=== PATIENT | female | born 1940 | race Two or more races ===

== ENCOUNTER 2023-06-09 12:41 | Inpatient (IN) | payer OTHER ==
[~2023-06-09] VITALS: Ht 152.4 cm; Wt 86.6 kg
[2023-06-09 14:01] LABS: Basophils # (auto) 0 10 ^3/uL (0-0.2); Basophils % (auto) 0.3 % (0.0-2.0); Eosinophils # (auto) 0.3 10 ^3/uL (0-0.8); Eosinophils % (auto) 4.5 % (0.0-7.0); Hematocrit 30.4 % (36.0-46.0); Hemoglobin 9.8 g/dL (12.2-16.2); Lymphocytes # (auto) 1.4 10 ^3/uL (0.4-5.4); Lymphocytes % (auto) 23.8 % (10.0-50.0); Mean Corpuscular Hemoglobin 28.2 pg (28.0-32.0); Mean Corpuscular Hgb Conc. 32.2 g/dL (32.0-36.0); Mean Corpuscular Volume 87.5 fL (80.0-100.0); Monocytes # (auto) 0.3 10 ^3/uL (0-1.3); Monocytes % (auto) 5.9 % (0.0-12.0); Neutrophils # (auto) 3.8 10 ^3/uL (1.6-8.6); Neutrophils % (auto) 65.5 % (37.0-80.0); Red Blood Cells 3.48 10^6/uL (4.0-5.20); Red Cell Distribution Width 13.9 % (11.8-14.3); White Blood Cell 5.8 10^3/uL (4.4-10.8)
[2023-06-09 14:19] LABS: Alanine Aminotransferase 24 U/L (7-40); Albumin 4.1 g/dL (3.2-4.8); Alkaline Phosphatase 67 U/L (46-116); Aspartate Aminotransferase 28 U/L (13-40); BUN/Creatinine Ratio 16.8 (10.0-20.0); Bilirubin, Total 0.3 mg/dL (0.2-1.0); Blood Urea Nitrogen 17 mg/dL (9-23); Calcium 9.1 mg/dL (8.5-10.1); Chloride 99 mmol/L (98-107); Glucose 107 mg/dL (74-106); Potassium 5.1 mmol/L (3.5-5.1); Sodium 134 mmol/L (136-145); Total Protein 6.3 g/dL (5.7-8.2)
[2023-06-09] MEDS ORDERED: IPRATROPIUM BROM 0.5 MG/2.5ML INH SOL HHN ONE (14:30)
[2023-06-09] MEDS ORDERED: ONDANSETRON HCL 4 MG/2 ML VIAL IV ONE (14:30)
[2023-06-09] MEDS ORDERED: ALBUTEROL SULF 2.5 MG/0.5ML(0.5%) NEB SOLN HHN ONE (14:30)
[2023-06-09] MEDS ORDERED: ACETAMINOPHEN 325 MG TAB PO ONE (14:30)
[2023-06-09] MEDS ORDERED: SODIUM CHLORIDE 0.9% 1,000 ML IV ONE (14:30)
[2023-06-09 16:11] LABS: Base Excess 4.8 mmol/L (-2.0-2.0)
[2023-06-09 16:16] LABS: INR 1.09 (0.9-1.15); Partial Thromboplastin Time 32.4 SEC (24.5-34.5); Prothrombin Time 11.4 sec (9.3-11.8)
[2023-06-09] MEDS ORDERED: IOHEXOL 350 MG/ML 100ML IJ ONE ×2 (16:21→16:28)
[2023-06-09 16:23] LABS: Blood Alcohol < 3.0 mg/dL (<10)
[2023-06-09 17:20] VITALS: BP 142/50; PULSE 74; O2SAT 99
[2023-06-09 17:34] VITALS: PULSE 70; RESP 25; O2SAT 98
[2023-06-09] MEDS ORDERED: ONDANSETRON HCL 4 MG/2 ML VIAL IV PRN (18:00)
[2023-06-09] MEDS ORDERED: DOCUSATE SOD 100 MG CAP PO PRN (18:00)
[2023-06-09] MEDS ORDERED: IPRATROPIUM BROM 0.5 MG/2.5ML INH SOL NEB PRN (18:00)
[2023-06-09] MEDS ORDERED: ALBUTEROL SULF 2.5 MG/0.5ML(0.5%) NEB SOLN NEB PRN (18:00)
[2023-06-09] MEDS ORDERED: ROSU1TAB12 PO (18:12)
[2023-06-09] MEDS ORDERED: LOSA100T58 PO (18:12)
[2023-06-09] MEDS ORDERED: AMLO1TAB23 PO (18:12)
[2023-06-09] MEDS ORDERED: PREG-111 PO (18:12)
[2023-06-09] MEDS ORDERED: TIZA-142 PO (18:12)
[2023-06-09] MEDS ORDERED: LEVO100T8 PO (18:12)
[2023-06-09 19:04] LABS: Urine Bacteria FEW /hpf (None Seen); Urine Blood Negative /uL (Negative); Urine Clarity Clear (Clear); Urine Color Yellow (Yellow); Urine Hyaline Cast FEW /lpf (0 - 2); Urine Protein, UAD Negative (Negative); Urine Specific Gravity 1.026 (1.001-1.035); Urine Urobilinogen Normal (Negative); Urine WBC 76 /hpf (0 - 5)
[2023-06-09 19:40] VITALS: PULSE 76; RESP 18; O2SAT 98
[2023-06-09 20:00] VITALS: BP 144/63; PULSE 75; O2SAT 95
[2023-06-09] MEDS: PREGABALIN CAPSULE 75 MG CAP PO SCH (21:52)
[2023-06-09] MEDS: SODIUM CHLOR 0.9% PF (SALINE LOCK) 10ML VIAL/SYR IV SCH (21:53)
[2023-06-09 22:25] VITALS: BP 133/79; PULSE 85; O2SAT 95
[2023-06-09] MEDS: HYDROcodone-ACET 5/325MG TAB PO PRN (22:54)
[2023-06-10] VITALS (13 sets, daily range): BP systolic 137–159; BP diastolic 54–99; PULSE 76–92; RESP 16–20; TEMP 97.3–99.2; O2SAT 94–98
[2023-06-10] MEDS ORDERED: NAP500T PO (03:10)
[2023-06-10] MEDS ORDERED: CHOL100083 (03:10)
[2023-06-10 06:18] LABS: Basophils # (auto) 0 10 ^3/uL (0-0.2); Basophils % (auto) 0.4 % (0.0-2.0); Eosinophils # (auto) 0.2 10 ^3/uL (0-0.8); Eosinophils % (auto) 3.3 % (0.0-7.0); Hematocrit 30.5 % (36.0-46.0); Hemoglobin 10.2 g/dL (12.2-16.2); Lymphocytes % (auto) 18.6 % (10.0-50.0); Mean Corpuscular Hemoglobin 28.9 pg (28.0-32.0); Mean Corpuscular Hgb Conc. 33.5 g/dL (32.0-36.0); Mean Corpuscular Volume 86.3 fL (80.0-100.0); Monocytes # (auto) 0.3 10 ^3/uL (0-1.3); Monocytes % (auto) 6.2 % (0.0-12.0); Neutrophils # (auto) 3.9 10 ^3/uL (1.6-8.6); Neutrophils % (auto) 71.5 % (37.0-80.0); Red Blood Cells 3.54 10^6/uL (4.0-5.20); Red Cell Distribution Width 13.6 % (11.8-14.3); White Blood Cell 5.5 10^3/uL (4.4-10.8)
[2023-06-10 06:29] LABS: Alanine Aminotransferase 21 U/L (7-40); Albumin 4.3 g/dL (3.2-4.8); Alkaline Phosphatase 77 U/L (46-116); Anion Gap 3.4 (5-15); Aspartate Aminotransferase 17 U/L (13-40); BUN/Creatinine Ratio 15.5 (10.0-20.0); Blood Urea Nitrogen 13 mg/dL (9-23); Calcium 9.5 mg/dL (8.7-10.4); Carbon Dioxide 35.6 mmol/L (20-30); Chloride 101 mmol/L (98-107); Glucose 110 mg/dL (74-106); Potassium 4.7 mmol/L (3.5-5.1); Sodium 140 mmol/L (136-145)
[2023-06-10 06:30] LABS: Bilirubin, Total 0.3 mg/dL (0.2-1.0); Total Protein 6.6 g/dL (5.7-8.2)
[2023-06-10] MEDS: LEVOTHYROXINE SODIUM 100 MCG TAB PO SCH (06:52)
[2023-06-10] MEDS: SODIUM CHLOR 0.9% PF (SALINE LOCK) 10ML VIAL/SYR IV SCH ×3 (06:52→21:09)
[2023-06-10] MEDS: ATORVASTATIN 20 MG TAB PO SCH (10:00)
[2023-06-10] MEDS: amLODIPine BESYLATE 5 MG TAB PO SCH (10:36)
[2023-06-10] MEDS: cefTRIAXone 1GM/50ML D5W 50 ML IV SCH (10:38)
[2023-06-10] MEDS: PREGABALIN CAPSULE 75 MG CAP PO SCH ×2 (12:31→21:09)
[2023-06-10] MEDS: LOSARTAN POTASSIUM 50 MG TAB PO SCH (12:32)
[2023-06-10] MEDS: HYDROcodone-ACET 5/325MG TAB PO PRN ×2 (12:53→21:12)
[2023-06-11] VITALS (11 sets, daily range): BP systolic 120–172; BP diastolic 60–83; PULSE 63–88; RESP 15–19; TEMP 97.9–98.7; O2SAT 94–98
[2023-06-11] MEDS: HYDROcodone-ACET 5/325MG TAB PO PRN ×3 (02:57→21:11)
[2023-06-11] MEDS: ACETAMINOPHEN 325 MG TAB PO PRN (06:10)
[2023-06-11] MEDS: SODIUM CHLOR 0.9% PF (SALINE LOCK) 10ML VIAL/SYR IV SCH ×3 (06:10→21:02)
[2023-06-11] MEDS: LEVOTHYROXINE SODIUM 100 MCG TAB PO SCH (06:10)
[2023-06-11] MEDS: cefTRIAXone 1GM/50ML D5W 50 ML IV SCH (09:28)
[2023-06-11] MEDS: amLODIPine BESYLATE 5 MG TAB PO SCH (09:29)
[2023-06-11] MEDS: LOSARTAN POTASSIUM 50 MG TAB PO SCH (09:30)
[2023-06-11] MEDS: PREGABALIN CAPSULE 75 MG CAP PO SCH ×2 (09:30→21:03)
[2023-06-11] MEDS: ATORVASTATIN 20 MG TAB PO SCH (09:30)
[2023-06-11] MEDS ORDERED: TIZANIDINE 4MG PO ONE (12:00)
[2023-06-11] MEDS ORDERED: METOPROLOL TARTRATE 25 MG TAB PO PRN (12:30)
[2023-06-11] MEDS ORDERED: METOPROLOL TARTRATE 1MG/1ML-5ML VIAL IV PRN (13:00)
[2023-06-11] MEDS: IPRATROPIUM BROM 0.5 MG/2.5ML INH SOL NEB SCH ×3 (14:00→22:00)
[2023-06-11] MEDS: ALBUTEROL SULF 2.5 MG/0.5ML(0.5%) NEB SOLN NEB SCH ×3 (14:00→22:00)
[2023-06-11] MEDS: TIZANIDINE 4 MG PO SCH (21:03)
[2023-06-12] VITALS (12 sets, daily range): BP systolic 115–145; BP diastolic 70–76; PULSE 54–106; RESP 17–20; TEMP 97.5–98.3; O2SAT 90–98
[2023-06-12] MEDS: HYDROcodone-ACET 5/325MG TAB PO PRN ×4 (02:00→20:52)
[2023-06-12] MEDS: LEVOTHYROXINE SODIUM 100 MCG TAB PO SCH (06:29)
[2023-06-12] MEDS: SODIUM CHLOR 0.9% PF (SALINE LOCK) 10ML VIAL/SYR IV SCH ×3 (06:30→20:37)
[2023-06-12 06:37] LABS: Basophils # (auto) 0 10 ^3/uL (0-0.2); Basophils % (auto) 0.3 % (0.0-2.0); Eosinophils # (auto) 0.3 10 ^3/uL (0-0.8); Eosinophils % (auto) 4.2 % (0.0-7.0); Hematocrit 36.9 % (36.0-46.0); Lymphocytes # (auto) 2.1 10 ^3/uL (0.4-5.4); Lymphocytes % (auto) 28.1 % (10.0-50.0); Mean Corpuscular Hemoglobin 28.5 pg (28.0-32.0); Mean Corpuscular Hgb Conc. 32.5 g/dL (32.0-36.0); Mean Corpuscular Volume 87.4 fL (80.0-100.0); Monocytes # (auto) 0.5 10 ^3/uL (0-1.3); Neutrophils # (auto) 4.4 10 ^3/uL (1.6-8.6); Neutrophils % (auto) 60.4 % (37.0-80.0); Red Blood Cells 4.22 10^6/uL (4.0-5.20); Red Cell Distribution Width 13.7 % (11.8-14.3); White Blood Cell 7.4 10^3/uL (4.4-10.8)
[2023-06-12 06:49] LABS: Anion Gap 7.4 (5-15); Carbon Dioxide 28.6 mmol/L (20-30); Chloride 99 mmol/L (98-107); Potassium 4.4 mmol/L (3.5-5.1)
[2023-06-12 06:55] LABS: BUN/Creatinine Ratio 16.9 (10.0-20.0); Blood Urea Nitrogen 15 mg/dL (9-23); Glucose 120 mg/dL (74-106)
[2023-06-12] MEDS: ALBUTEROL SULF 2.5 MG/0.5ML(0.5%) NEB SOLN NEB SCH ×3 (07:12→20:57)
[2023-06-12] MEDS: IPRATROPIUM BROM 0.5 MG/2.5ML INH SOL NEB SCH ×3 (07:12→20:57)
[2023-06-12 07:20] LABS: Sodium 135 mmol/L (136-145)
[2023-06-12] MEDS: PREGABALIN CAPSULE 75 MG CAP PO SCH ×2 (08:41→20:35)
[2023-06-12] MEDS: ATORVASTATIN 20 MG TAB PO SCH (08:41)
[2023-06-12] MEDS: LOSARTAN POTASSIUM 50 MG TAB PO SCH (08:42)
[2023-06-12] MEDS: amLODIPine BESYLATE 5 MG TAB PO SCH (08:42)
[2023-06-12] MEDS: TIZANIDINE 4 MG PO SCH ×2 (08:43→20:35)
[2023-06-12] MEDS: cefTRIAXone 1GM/50ML D5W 50 ML IV SCH (08:43)
[2023-06-12] MEDS ORDERED: ceFAZolin 1GM/50ML 100 ML IV ONE (10:05)
[2023-06-12] MEDS ORDERED: MIDAZOLAM HCL 2MG/2ML 2ml VIAL (1mg/ml) ONE (10:25)
[2023-06-12] MEDS ORDERED: fentaNYL CITRATE 100 MCG/2 ML VL ONE (10:25)
[2023-06-12] MEDS ORDERED: TETRACAINE 1% INJ 2 ML VIAL IJ ONE (10:28)
[2023-06-12] MEDS ORDERED: DexAMETHasone SOD PHOS 10MG/1ML VIAL INJ ONE (11:12)
[2023-06-12] MEDS ORDERED: PROPOFOL 10 MG/ML 20 ML IV ONE (11:12)
[2023-06-12] MEDS ORDERED: ePHEDrine SULFATE 50 MG/ML AMP IV PRN (11:15)
[2023-06-12] MEDS ORDERED: ONDANSETRON HCL 4 MG/2 ML VIAL IV PRN (11:15)
[2023-06-12] MEDS ORDERED: MIDAZOLAM HCL 2MG/2ML 2ml VIAL (1mg/ml) IV PRN (11:15)
[2023-06-12] MEDS ORDERED: LABETALOL HCL 5 MG/ML 4ML SYRINGE IV PRN (11:15)
[2023-06-12] MEDS ORDERED: MORPHINE SULFATE 4 MG/ML SYR/VIAL IV PRN (11:15)
[2023-06-12] MEDS: HYDROmorphone HCL 2 MG/ML VL/or syr IV PRN ×4 (12:25→12:57)
[2023-06-12] MEDS ORDERED: PHENYLEPHRINE HCL 10 MG/ML VL IV ONE (18:04)
[2023-06-13] VITALS (10 sets, daily range): BP systolic 116–150; BP diastolic 48–76; PULSE 74–91; RESP 18–20; TEMP 36.6; O2SAT 94–99
[2023-06-13] MEDS: HYDROcodone-ACET 5/325MG TAB PO PRN ×3 (01:19→09:59)
[2023-06-13] MEDS: LEVOTHYROXINE SODIUM 100 MCG TAB PO SCH (05:46)
[2023-06-13] MEDS: SODIUM CHLOR 0.9% PF (SALINE LOCK) 10ML VIAL/SYR IV SCH ×2 (05:47→14:29)
[2023-06-13] MEDS: IPRATROPIUM BROM 0.5 MG/2.5ML INH SOL NEB SCH ×2 (06:55→14:29)
[2023-06-13] MEDS: ALBUTEROL SULF 2.5 MG/0.5ML(0.5%) NEB SOLN NEB SCH ×2 (06:55→14:29)
[2023-06-13 07:10] LABS: Basophils # (auto) 0 10 ^3/uL (0-0.2); Basophils % (auto) 0.1 % (0.0-2.0); Eosinophils # (auto) 0 10 ^3/uL (0-0.8); Hematocrit 32.8 % (36.0-46.0); Hemoglobin 11.1 g/dL (12.2-16.2); Lymphocytes # (auto) 1.3 10 ^3/uL (0.4-5.4); Lymphocytes % (auto) 12.4 % (10.0-50.0); Mean Corpuscular Hemoglobin 28.7 pg (28.0-32.0); Mean Corpuscular Hgb Conc. 33.8 g/dL (32.0-36.0); Mean Corpuscular Volume 84.8 fL (80.0-100.0); Monocytes # (auto) 0.4 10 ^3/uL (0-1.3); Monocytes % (auto) 3.5 % (0.0-12.0); Neutrophils # (auto) 8.9 10 ^3/uL (1.6-8.6); Nucleated Red Blood Cells % 0.1 %; Red Blood Cells 3.87 10^6/uL (4.0-5.20); Red Cell Distribution Width 13.4 % (11.8-14.3); White Blood Cell 10.6 10^3/uL (4.4-10.8)
[2023-06-13] MEDS: cefTRIAXone 1GM/50ML D5W 50 ML IV SCH (08:46)
[2023-06-13] MEDS: ATORVASTATIN 20 MG TAB PO SCH (08:46)
[2023-06-13] MEDS: amLODIPine BESYLATE 5 MG TAB PO SCH (08:47)
[2023-06-13] MEDS: LOSARTAN POTASSIUM 50 MG TAB PO SCH (08:48)
[2023-06-13] MEDS: TIZANIDINE 4 MG PO SCH (08:50)
[2023-06-13] MEDS: PREGABALIN CAPSULE 75 MG CAP PO SCH (09:13)
[2023-06-13] MEDS ORDERED: ENOXAPARIN SOD 40 MG/0.4 ML SYRINGE SC SCH (10:00)
[2023-06-13] MEDS: ACETAMINOPHEN 325 MG TAB PO PRN (13:31)
[2023-06-13] MEDS ORDERED: OXYCODONE W/ ACETAMINOPHEN 5/325MG TABLET PO PRN (13:45)
[2023-06-13] MEDS ORDERED: AMOX500T86 PO (14:10)
[2023-06-13] MEDS ORDERED: ASPI1TAB20 PO (14:10)
== END 2023-06-13 18:05 | disposition home health service (06) | DRG 493 ==
LOC: ER 12:41 → EDBD 12:41 → TELE 18:09 → TELE-WESTW 06-10 01:15
PROVIDERS: ADMIT Nurse Practitioner Family; ATTEND Hospitalist
PROC: 5A09357 Assistance with Respiratory Ventilation, Less than 24 Consecutive Hours, Continuous Positive Airway Pressure (ICD-10-PCS; principal; 2023-06-09)
PROC: 0QSG04Z Reposition Right Tibia with Internal Fixation Device, Open Approach (ICD-10-PCS; 2023-06-12)
PROC: 0QSJ04Z Reposition Right Fibula with Internal Fixation Device, Open Approach (ICD-10-PCS; 2023-06-12)
DX: S82.841A Displaced bimalleolar fracture of right lower leg, initial encounter for closed fracture (principal); E87.20 Acidosis, unspecified; N39.0 Urinary tract infection, site not specified; J96.11 Chronic respiratory failure with hypoxia; D64.9 Anemia, unspecified; I10 Essential (primary) hypertension; Z96.643 Presence of artificial hip joint, bilateral; W18.39XA Other fall on same level, initial encounter; E78.5 Hyperlipidemia, unspecified; E03.9 Hypothyroidism, unspecified; E66.9 Obesity, unspecified; Z68.37 Body mass index [BMI] 37.0-37.9, adult; Z80.0 Family history of malignant neoplasm of digestive organs; Z99.81 Dependence on supplemental oxygen; Z82.49 Family history of ischemic heart disease and other diseases of the circulatory system; Z90.710 Acquired absence of both cervix and uterus; Y93.89 Activity, other specified; Y92.89 Other specified places as the place of occurrence of the external cause; Y99.8 Other external cause status; Z88.5 Allergy status to narcotic agent; Z88.8 Allergy status to other drugs, medicaments and biological substances
CPT/HCPCS: 36415; 36600; 70450; 71045; 71275; 73502; 73590; 73600; 73610; 76000; 80048; 80053; 80320; 81001; 82805; 82962; 83036; 83605; 83735; 83880; 84443; 84484; 85025; 85379; 85610; 85730; 86850; 86900; 86901; 87040; 87081; 87086; 87088; 87186; 93005; 93306; 94640; 94660; 97110; 97163; 97530; 99291; G0378; J0690; J0696; J1100; J2250; J2704

== ENCOUNTER 2023-06-25 15:46 | Emergency (ER) | payer OTHER ==
[~2023-06-25] VITALS: Ht 162.6 cm; Wt 80.0 kg
[~2023-06-25 15:46] MED LIST: AMLO1TAB23 PO; AMOX500T86 PO; ASPI1TAB20 PO; CHOL100083; LEVO100T8 PO; LOSA100T58 PO; NAP500T PO; PREG-111 PO; ROSU1TAB12 PO; TIZA-142 PO
[2023-06-25 16:50] LABS: Basophils # (auto) 0 10 ^3/uL (0-0.2); Basophils % (auto) 0.5 % (0.0-2.0); Eosinophils # (auto) 0.2 10 ^3/uL (0-0.8); Eosinophils % (auto) 2.6 % (0.0-7.0); Hematocrit 33.9 % (36.0-46.0); Hemoglobin 11.1 g/dL (12.2-16.2); Lymphocytes # (auto) 1.1 10 ^3/uL (0.4-5.4); Lymphocytes % (auto) 17.9 % (10.0-50.0); Mean Corpuscular Hemoglobin 28.5 pg (28.0-32.0); Mean Corpuscular Hgb Conc. 32.8 g/dL (32.0-36.0); Mean Corpuscular Volume 86.8 fL (80.0-100.0); Monocytes # (auto) 0.2 10 ^3/uL (0-1.3); Monocytes % (auto) 3.5 % (0.0-12.0); Neutrophils # (auto) 4.7 10 ^3/uL (1.6-8.6); Neutrophils % (auto) 75.5 % (37.0-80.0); Nucleated Red Blood Cells % 0.1 %; Red Blood Cells 3.91 10^6/uL (4.0-5.20); Red Cell Distribution Width 13.8 % (11.8-14.3); White Blood Cell 6.2 10^3/uL (4.4-10.8)
[2023-06-25 17:08] LABS: Alanine Aminotransferase 16 U/L (7-40); Albumin 5.3 g/dL (3.2-4.8); Alkaline Phosphatase 77 U/L (46-116); Anion Gap 4 (5-15); Aspartate Aminotransferase 19 U/L (13-40); BUN/Creatinine Ratio 37.3 (10.0-20.0); Bilirubin, Total 0.3 mg/dL (0.2-1.0); Blood Urea Nitrogen 28 mg/dL (9-23); Calcium 10.4 mg/dL (8.7-10.4); Carbon Dioxide 35 mmol/L (20-30); Chloride 99 mmol/L (98-107); Glucose 117 mg/dL (74-106); Potassium 4.1 mmol/L (3.5-5.1); Sodium 138 mmol/L (136-145)
[2023-06-25 17:09] LABS: Total Protein 7.8 g/dL (5.7-8.2)
[2023-06-25 20:40] VITALS: PULSE 92; RESP 18; O2SAT 92
[2023-06-26] MEDS ORDERED: FLEET ENEMA(ADULT) 135 ML PR ONE
[2023-06-26 00:06] LABS: Urine Bacteria NONE SEEN /hpf (None Seen); Urine Blood Negative /uL (Negative); Urine Clarity Clear (Clear); Urine Mucus FEW (None Seen); Urine Protein, UAD TRACE (Negative); Urine Specific Gravity 1.013 (1.001-1.035); Urine Urobilinogen Normal (Negative); Urine WBC 1 /hpf (0 - 5); Urine pH 7.5 (5.0-8.0)
[2023-06-26 00:07] LABS: Urine Color Straw (Yellow)
[2023-06-26] MEDS ORDERED: KETOROLAC TROMETH 30 MG/ML 1ML VIAL IV ONE (00:45)
[2023-06-26] MEDS ORDERED: HYDROcodone-ACET 5/325MG TAB PO ONE ×3 (00:45→22:00)
[2023-06-26] MEDS ORDERED: GOLYTELY 4L KIT PO ONE (02:15)
[2023-06-26 08:00] VITALS: PULSE 82; RESP 12; O2SAT 95
[2023-06-26] MEDS ORDERED: LOSARTAN POTASSIUM 50 MG TAB PO ONE (15:00)
[2023-06-26] MEDS ORDERED: LEVOTHYROXINE SODIUM 100 MCG TAB PO ONE (15:00)
[2023-06-26] MEDS: amLODIPine BESYLATE 5 MG TAB PO ONE ×2 (15:13→15:25)
[2023-06-26 18:59] LABS: COVID19 ANTIGEN SOFIA FIA NEGATIVE (NEGATIVE)
[2023-06-26 19:30] VITALS: PULSE 63; RESP 20; O2SAT 100
[2023-06-26] MEDS: amLODIPine BESYLATE 5 MG TAB PO SCH (22:13)
[2023-06-27] MEDS ORDERED: HYDROcodone-ACET 5/325MG TAB PO ONE (03:45)
[2023-06-27] MEDS: LEVOTHYROXINE SODIUM 100 MCG TAB PO SCH (07:18)
[2023-06-27 08:08] VITALS: PULSE 72; RESP 20; O2SAT 96
[2023-06-27] MEDS ORDERED: OMEG100062 PO (08:52)
[2023-06-27] MEDS ORDERED: ROSU5TAB5 PO (08:52)
[2023-06-27] MEDS ORDERED: OXY10CRT PO (08:52)
[2023-06-27] MEDS ORDERED: amLODIPine BESYLATE 5 MG TAB PO SCH (10:00)
[2023-06-27] MEDS: OXYCODONE W/ ACETAMINOPHEN 5/325MG TABLET PO SCH ×3 (11:33→22:02)
[2023-06-27] MEDS: LOSARTAN POTASSIUM 50 MG TAB PO SCH (11:34)
[2023-06-27] MEDS ORDERED: ACETAMINOPHEN 325 MG TAB PO ONE (18:00)
[2023-06-27 19:30] VITALS: PULSE 69; RESP 14; O2SAT 94
[2023-06-27] MEDS: amLODIPine BESYLATE 5 MG TAB PO SCH (22:02)
[2023-06-28] MEDS: OXYCODONE W/ ACETAMINOPHEN 5/325MG TABLET PO SCH ×2 (06:18→14:08)
[2023-06-28] MEDS: LEVOTHYROXINE SODIUM 100 MCG TAB PO SCH (06:18)
[2023-06-28 08:00] VITALS: PULSE 63; RESP 15; O2SAT 96
[2023-06-28] MEDS: LOSARTAN POTASSIUM 50 MG TAB PO SCH (10:28)
[2023-06-28 14:00] VITALS: BP 90/46; PULSE 67; RESP 18; TEMP 98.5; O2SAT 95
[2023-06-28] MEDS ORDERED: FAMOTIDINE 20 MG TAB PO ONE (14:30)
== END 2023-06-28 15:42 ==
LOC: ER 15:46 → EDBD 15:46 → ER 06-28 15:00
DX: G89.4 Chronic pain syndrome (principal); K56.41 Fecal impaction; R33.9 Retention of urine, unspecified; R94.31 Abnormal electrocardiogram [ECG] [EKG]; Z88.2 Allergy status to sulfonamides; Z88.6 Allergy status to analgesic agent; Z79.899 Other long term (current) drug therapy; Z20.822 Contact with and (suspected) exposure to COVID-19
CPT/HCPCS: 36415; 51702; 74176; 80053; 81001; 82962; 84484; 85025; 87426; 93005; 97110; 97116; 97163; 97530

== ENCOUNTER 2023-07-26 11:45 | Inpatient (IN) | payer OTHER, MEDICAID ==
[~2023-07-26] VITALS: Ht 152.4 cm; Wt 86.0 kg
[~2023-07-26 11:45] MED LIST changes: +OMEG100062 PO; +OXY10CRT PO; +ROSU5TAB5 PO
[2023-07-26 13:56] LABS: Urine Bacteria NONE SEEN /hpf (None Seen); Urine Blood Negative /uL (Negative); Urine Clarity HAZY (Clear); Urine Color Yellow (Yellow); Urine Protein, UAD Negative (Negative); Urine Specific Gravity 1.017 (1.001-1.035); Urine Urobilinogen Normal (Negative); Urine WBC 14 /hpf (0 - 5)
[2023-07-26] MEDS ORDERED: ONDANSETRON HCL 4 MG/2 ML VIAL IV ONE (15:00)
[2023-07-26] MEDS ORDERED: VANCOMYCIN PER PHARMACY 1,000 MG IV SCH (15:00)
[2023-07-26] MEDS ORDERED: SODIUM CHLORIDE 0.9% 1,000 ML IV ONE (15:00)
[2023-07-26] MEDS ORDERED: HYDROcodone-ACET 10/325MG TAB PO ONE (15:00)
[2023-07-26] MEDS ORDERED: VANCOMYCIN 1GM/250ML 250 ML IV ONE (15:30)
[2023-07-26 15:55] LABS: Basophils # (auto) 0 10 ^3/uL (0-0.2); Basophils % (auto) 0.6 % (0.0-2.0); Eosinophils # (auto) 0.2 10 ^3/uL (0-0.8); Eosinophils % (auto) 4.5 % (0.0-7.0); Hematocrit 31.7 % (36.0-46.0); Hemoglobin 10.2 g/dL (12.2-16.2); Lymphocytes # (auto) 1.5 10 ^3/uL (0.4-5.4); Lymphocytes % (auto) 26.8 % (10.0-50.0); Mean Corpuscular Hemoglobin 28.2 pg (28.0-32.0); Mean Corpuscular Hgb Conc. 32.1 g/dL (32.0-36.0); Monocytes # (auto) 0.4 10 ^3/uL (0-1.3); Monocytes % (auto) 6.5 % (0.0-12.0); Neutrophils # (auto) 3.4 10 ^3/uL (1.6-8.6); Neutrophils % (auto) 61.6 % (37.0-80.0); White Blood Cell 5.4 10^3/uL (4.4-10.8)
[2023-07-26 16:18] LABS: Alanine Aminotransferase 22 U/L (7-40); Albumin 4.6 g/dL (3.2-4.8); Alkaline Phosphatase 95 U/L (46-116); Anion Gap 4 (5-15); Aspartate Aminotransferase 22 U/L (13-40); BUN/Creatinine Ratio 15.1 (10.0-20.0); Bilirubin, Total 0.3 mg/dL (0.2-1.0); Blood Urea Nitrogen 16 mg/dL (9-23); Calcium 9.5 mg/dL (8.5-10.1); Carbon Dioxide 35 mmol/L (20-30); Chloride 93 mmol/L (98-107); Glucose 111 mg/dL (74-106); Potassium 4.7 mmol/L (3.5-5.1); Sodium 132 mmol/L (136-145); Total Protein 7.4 g/dL (5.7-8.2)
[2023-07-26 16:26] LABS: CRP High Sensitivity 1.73 mg/dL (<1.0)
[2023-07-26 16:31] LABS: INR 1.09 (0.9-1.15); Partial Thromboplastin Time 31.9 SEC (24.5-34.5); Prothrombin Time 11.4 sec (9.3-11.8)
[2023-07-26 17:03] LABS: Erythrocyte Sedimentation Rate 28 mm/hr (0-20)
[2023-07-27] MEDS ORDERED: HYDROcodone-ACET 5/325MG TAB PO PRN (06:15)
[2023-07-27] MEDS ORDERED: ONDANSETRON HCL 4 MG/2 ML VIAL IV PRN (06:15)
[2023-07-27] MEDS ORDERED: ACETAMINOPHEN 325 MG TAB PO PRN (06:15)
[2023-07-27] MEDS ORDERED: hydrALAZINE HCL 10 MG TAB PO PRN (06:15)
[2023-07-27] MEDS ORDERED: DEXTROSE (50%) 50ML SYRG IV PRN (06:15)
[2023-07-27] MEDS: InsuLIN REG 1unit/0.01ml Soln (100units/ml) SC SCH ×4 (06:58→21:57)
[2023-07-27] MEDS: ACCU-CHEK COMFORT CURVE STRIP VI SCH ×4 (06:59→21:57)
[2023-07-27 08:16] VITALS: PULSE 70; RESP 13; O2SAT 98
[2023-07-27] MEDS ORDERED: levoFLOXacin 500MG 100 ML IV ONE (10:00)
[2023-07-27] MEDS: FAMOTIDINE 20 MG TAB PO SCH (10:08)
[2023-07-27] MEDS ORDERED: CLINDAMYCIN 600MG IV 50 ML IV SCH (14:00)
[2023-07-27] MEDS: MORPHINE SULFATE INJ 2 MG/ml SYRG IV PRN (18:51)
[2023-07-27 19:18] VITALS: PULSE 93; RESP 19; O2SAT 94
[2023-07-27 21:50] VITALS: BP 135/75; PULSE 72; RESP 20; TEMP 97.6; O2SAT 94
[2023-07-27] MEDS: ACETAMINOPHEN 325 MG TAB PO PRN (21:57)
[2023-07-27 22:00] VITALS: BP 135/75; PULSE 72; RESP 18; TEMP 97.6; O2SAT 94
[2023-07-28] VITALS (7 sets, daily range): BP systolic 143–155; BP diastolic 67–96; PULSE 73–101; RESP 14–20; TEMP 97.9–98.3; O2SAT 90–98
[2023-07-28] MEDS: VANCOMYCIN 1GM/250ML 250 ML IV SCH (01:57)
[2023-07-28] MEDS: MORPHINE SULFATE INJ 2 MG/ml SYRG IV PRN ×2 (01:57→19:55)
[2023-07-28] MEDS: ACETAMINOPHEN 325 MG TAB PO PRN (05:26)
[2023-07-28] MEDS: InsuLIN REG 1unit/0.01ml Soln (100units/ml) SC SCH ×4 (06:23→22:00)
[2023-07-28] MEDS: ACCU-CHEK COMFORT CURVE STRIP VI SCH ×4 (06:24→22:24)
[2023-07-28] MEDS: FAMOTIDINE 20 MG TAB PO SCH (10:13)
[2023-07-28] MEDS: levoFLOXacin 250MG 50 ML IV SCH (10:14)
[2023-07-28] MEDS: PREGABALIN CAPSULE 75 MG CAP PO SCH ×2 (12:28→22:23)
[2023-07-28] MEDS: Tizanidine Hydrochloride (Tizanidine Hcl) 1 TAB PO SCH ×2 (14:00→22:00)
[2023-07-28] MEDS ORDERED: PATIENTS OWN MEDICATION (Pregabalin 1 CAP) PO SCH (22:00)
[2023-07-29] MEDS: VANCOMYCIN 1GM/250ML 250 ML IV SCH (01:45)
[2023-07-29 05:00] VITALS: BP 133/82; PULSE 84; RESP 14; TEMP 98.3; O2SAT 95
[2023-07-29] MEDS: Tizanidine Hydrochloride (Tizanidine Hcl) 1 TAB PO SCH ×2 (05:49→14:00)
[2023-07-29] MEDS: InsuLIN REG 1unit/0.01ml Soln (100units/ml) SC SCH ×3 (06:01→16:36)
[2023-07-29] MEDS: ACCU-CHEK COMFORT CURVE STRIP VI SCH ×3 (06:02→16:36)
[2023-07-29] MEDS ORDERED: MORPHINE SULFATE INJ 2 MG/ml SYRG ONE (08:28)
[2023-07-29] MEDS: FAMOTIDINE 20 MG TAB PO SCH (08:35)
[2023-07-29] MEDS: PREGABALIN CAPSULE 75 MG CAP PO SCH (08:35)
[2023-07-29] MEDS: levoFLOXacin 250MG 50 ML IV SCH (08:35)
[2023-07-29] MEDS: MORPHINE SULFATE INJ 2 MG/ml SYRG IV PRN ×2 (08:37→15:14)
[2023-07-29 09:07] VITALS: BP 186/106; PULSE 89; RESP 15; TEMP 98.3; O2SAT 96
[2023-07-29] MEDS ORDERED: LOSARTAN POTASSIUM 50 MG TAB PO SCH (10:00)
[2023-07-29] MEDS ORDERED: PATIENTS OWN MEDICATION (Losartan Potassium 1 TAB) PO SCH (10:00)
[2023-07-29] MEDS ORDERED: amLODIPine BESYLATE 5 MG TAB PO SCH (10:00)
[2023-07-29 12:30] VITALS: BP 161/82; PULSE 82; RESP 15; TEMP 97.6; O2SAT 98
[2023-07-29 16:45] VITALS: BP 165/76; PULSE 78; RESP 15; TEMP 98.2; O2SAT 94
[2023-07-29] MEDS ORDERED: AUG875T PO (17:36)
[2023-07-29] MEDS ORDERED: DOXY-286 PO (17:36)
[2023-07-29 18:02] VITALS: BP 168/66; TEMP 36.8
== END 2023-07-29 19:05 | disposition home health service (06) | DRG 920 ==
LOC: ER 11:45 → OVERFLOW 07-27 06:19 → WEST WING 07-27 21:17
PROVIDERS: ADMIT Nurse Practitioner Family; ATTEND Nurse Practitioner Family
DX: T81.89XA Other complications of procedures, not elsewhere classified, initial encounter (principal); L03.115 Cellulitis of right lower limb; N39.0 Urinary tract infection, site not specified; E11.9 Type 2 diabetes mellitus without complications; I10 Essential (primary) hypertension; E03.9 Hypothyroidism, unspecified; E78.5 Hyperlipidemia, unspecified; F03.A0 Unspecified dementia, mild, without behavioral disturbance, psychotic disturbance, mood disturbance, and anxiety; Z88.0 Allergy status to penicillin; Z88.5 Allergy status to narcotic agent; Z88.1 Allergy status to other antibiotic agents; Z91.011 Allergy to milk products; Z82.49 Family history of ischemic heart disease and other diseases of the circulatory system; Z80.0 Family history of malignant neoplasm of digestive organs; Z86.711 Personal history of pulmonary embolism
CPT/HCPCS: 36415; 73610; 73700; 80053; 81001; 82553; 82962; 83605; 85025; 85610; 85652; 85730; 86141; 86850; 86900; 86901; 87040; 87081; 87086; 93971; 96365; 96367; G0378; J1956; J2405; J3490